=== PATIENT | female | born 2000 | race Hispanic/Latino ===

== ENCOUNTER 2022-10-12 02:04 | Inpatient (IN) | payer OTHER ==
[~2022-10-12] VITALS: Ht 157.5 cm; Wt 88.5 kg
[2022-10-12] MEDS ORDERED: ONDANSETRON HCL INJ 2MG/ML 2ML 2 MG/ML VIAL ONE (02:28)
[2022-10-12] MEDS ORDERED: SODIUM CHLORIDE 0.9% 1000ML 1,000 ML ONE (02:29)
[2022-10-12] MEDS ORDERED: FENTANYL CITRATE/PF 100MCG/2 ML INJ ONE (02:29)
[2022-10-12 02:41] LABS: BASOPHILS % 0.3 % (0.0-1.0); EOSINOPHILS # (AUTO) 0.2 (0.0-0.4); EOSINOPHILS % 1.4 % (0.0-6.0); HEMATOCRIT 43.2 % (34.2-44.1); HEMOGLOBIN 13.4 g/dL (12.0-16.0); LYMPHOCYTES # (AUTO) 5.9 (1.0-3.2); LYMPHOCYTES % 50.6 % (18.0-39.1); MEAN CORPUSCULAR HEMOGLOBIN 29.2 pg (28-32); MEAN CORPUSCULAR VOLUME 94.1 fL (81-99); MONOCYTES # (AUTO) 0.7 (0.2-0.8); MONOCYTES % 5.9 % (4.4-11.3); NEUTROPHILS # (AUTO) 4.9 (2.1-6.9); NEUTROPHILS % 41.6 % (38.7-80.0); PLATELET COUNT 299 x10e3/uL (140-360); RED BLOOD COUNT 4.59 x10e6/uL (3.6-5.1); RED CELL DISTRIBUTION WIDTH 12.5 % (11.7-14.4)
[2022-10-12] MEDS ORDERED: FENTANYL CITRATE/PF 100MCG/2 ML INJ IV ONE (02:45)
[2022-10-12] MEDS ORDERED: ONDANSETRON HCL INJ 2MG/ML 2ML 2 MG/ML VIAL IV STA (02:45)
[2022-10-12 02:57] LABS: ALBUMIN 4.1 g/dL (3.5-5.0); ALBUMIN/GLOBULIN RATIO 1.2 (0.8-2.0); ANION GAP 15.8 mmol/L (8-16); CALCIUM 9.2 mg/dL (8.4-10.2); CREATININE, SERUM 0.77 mg/dL (0.57-1.11)
[2022-10-12 03:07] LABS: POTASSIUM 2.8 mmol/L (3.5-5.1)
[2022-10-12] MEDS ORDERED: POTASSIUM CHLORIDE 20 MEQ TAB CR PO STA (03:07)
[2022-10-12 03:37] LABS: CLARITY,URINE CLOUDY (CLEAR); COLOR,URINE YELLOW (YELLOW); KETONES,URINE NEGATIVE (NEGATIVE); LEUKOCYTE ESTERASE ,URINE NEGATIVE (NEGATIVE); NITRITE,URINE NEGATIVE (NEGATIVE); PROTEIN,URINE DIPSTICK NEGATIVE (NEGATIVE); URINE UROBILINOGEN 1 mg/dL (0.2 - 1)
[2022-10-12 03:44] LABS: BACTERIA,URINE MANY /HPF; WBC,URINE (MAN) 21-50 /HPF (0-5)
[2022-10-12 03:45] LABS: EPITHELIAL CELLS,URINE MANY /LPF
[2022-10-12] MEDS ORDERED: IOPAMIDOL 370 MG/ML 100 ML INFUS..BTL INJ ONE (03:59)
[2022-10-12] MEDS ORDERED: SODIUM CHLORIDE 0.9% 1000ML 1,000 ML IV SCH (04:45)
[2022-10-12] MEDS ORDERED: MELATONIN 5 MG TABLET PO PRN (12:00)
[2022-10-12] MEDS ORDERED: DIPHENHYDRAMINE HCL 25 MG CAP PO PRN (12:00)
[2022-10-12] MEDS ORDERED: BENZONATATE 100 MG CAP PO PRN (12:00)
[2022-10-12] MEDS ORDERED: ACETAMINOPHEN 325 MG TAB PO PRN (12:00)
[2022-10-12] MEDS ORDERED: DEXTROSE 50% SYRINGE 50 ML IV PRN (12:00)
[2022-10-12] MEDS ORDERED: HYDRALAZINE HCL 20 MG/ML VIAL IV PRN (12:00)
[2022-10-12] MEDS ORDERED: POTASSIUM CHLORIDE 20 MEQ TAB CR PO PRN (12:00)
[2022-10-12] MEDS ORDERED: ALBUTEROL/IPRATROPIUM 3 ML NEB NEB PRN (12:00)
[2022-10-12] MEDS ORDERED: DOCUSATE SODIUM 100 MG CAP PO PRN (12:00)
[2022-10-12] MEDS ORDERED: LIDOCAINE 4% PATCH TP PRN (12:00)
[2022-10-12] MEDS ORDERED: SIMETHICONE 80 MG CHEW PO PRN (12:00)
[2022-10-12] MEDS ORDERED: PROPOFOL IV EMULSION 10 MG/ML 20 ML VIAL ONE (12:23)
[2022-10-12 12:24] VITALS: BP 140/90
[2022-10-12] MEDS ORDERED: POTASSIUM CHLORIDE 20 MEQ TAB CR PO ONE (12:30)
[2022-10-12 12:48] VITALS: BP 140/90
[2022-10-12] MEDS ORDERED: LACTATED RINGER'S 1,000 ML INJ ONE (13:00)
[2022-10-12 13:13] VITALS: BP 140/90
[2022-10-12] MEDS: DEXTROSE 5%/LACTATED RINGERS 1,000 ML IV SCH (14:10)
[2022-10-12 16:48] VITALS: BP 149/81
[2022-10-12] MEDS: ENOXAPARIN SOD INJ 40 MG/0.4 ML SYR SC SCH (17:00)
[2022-10-12 20:00] VITALS: BP 166/98
[2022-10-12 20:05] VITALS: BP 166/98
[2022-10-12] MEDS: Morphine 4mg INJECTION 4 MG/ML INJ IV PRN (20:11)
[2022-10-13] VITALS (8 sets, daily range): BP systolic 129–149; BP diastolic 80–91
[2022-10-13] MEDS: DEXTROSE 5%/LACTATED RINGERS 1,000 ML IV SCH ×4 (03:20→15:47)
[2022-10-13 06:10] LABS: BASOPHILS % 0.2 % (0.0-1.0); EOSINOPHILS # (AUTO) 0.1 (0.0-0.4); EOSINOPHILS % 1.5 % (0.0-6.0); LYMPHOCYTES # (AUTO) 2.7 (1.0-3.2); MEAN CORPUSCULAR VOLUME 96.6 fL (81-99); MONOCYTES # (AUTO) 0.6 (0.2-0.8); MONOCYTES % 6.1 % (4.4-11.3); NEUTROPHILS # (AUTO) 5.6 (2.1-6.9); NEUTROPHILS % 61.9 % (38.7-80.0); PLATELET COUNT 237 x10e3/uL (140-360); RED BLOOD COUNT 4.14 x10e6/uL (3.6-5.1); RED CELL DISTRIBUTION WIDTH 12.9 % (11.7-14.4)
[2022-10-13 06:40] LABS: ALBUMIN 3.3 g/dL (3.5-5.0); ALBUMIN/GLOBULIN RATIO 1.2 (0.8-2.0); ANION GAP 11.1 mmol/L (8-16); CALCIUM 8.7 mg/dL (8.4-10.2); CREATININE, SERUM 0.74 mg/dL (0.57-1.11); POTASSIUM 4.1 mmol/L (3.5-5.1)
[2022-10-13] MEDS: PANTOPRAZOLE SOD 40 MG TABEC PO SCH (07:30)
[2022-10-13] MEDS: ONDANSETRON HCL INJ 2MG/ML 2ML 2 MG/ML VIAL IV PRN ×2 (09:00→14:05)
[2022-10-13] MEDS: Morphine 4mg INJECTION 4 MG/ML INJ IV PRN ×3 (09:00→22:40)
[2022-10-13] MEDS: ENOXAPARIN SOD INJ 40 MG/0.4 ML SYR SC SCH (15:47)
[2022-10-14] VITALS (8 sets, daily range): BP systolic 131–152; BP diastolic 79–88
[2022-10-14] MEDS: DEXTROSE 5%/LACTATED RINGERS 1,000 ML IV SCH ×4 (02:06→20:27)
[2022-10-14 06:28] LABS: ALBUMIN 2.8 g/dL (3.5-5.0); ANION GAP 8.6 mmol/L (8-16); CALCIUM 8.7 mg/dL (8.4-10.2); CREATININE, SERUM 0.76 mg/dL (0.57-1.11); POTASSIUM 3.6 mmol/L (3.5-5.1)
[2022-10-14] MEDS ORDERED: BUPIVACAINE HCL 0.5% INJ 30 ML VIAL INJ ONE (07:44)
[2022-10-14 07:52] LABS: BASOPHILS % 0.3 % (0.0-1.0); EOSINOPHILS # (AUTO) 0.3 (0.0-0.4); EOSINOPHILS % 2.7 % (0.0-6.0); HEMOGLOBIN 11.7 g/dL (12.0-16.0); LYMPHOCYTES # (AUTO) 3.7 (1.0-3.2); LYMPHOCYTES % 36.6 % (18.0-39.1); MEAN CORPUSCULAR HEMOGLOBIN 29.2 pg (28-32); MEAN CORPUSCULAR HGB CONC 32.5 g/dL (31-35); MEAN CORPUSCULAR VOLUME 89.8 fL (81-99); MONOCYTES # (AUTO) 0.7 (0.2-0.8); MONOCYTES % 6.6 % (4.4-11.3); NEUTROPHILS # (AUTO) 5.3 (2.1-6.9); NEUTROPHILS % 53.5 % (38.7-80.0); PLATELET COUNT 211 x10e3/uL (140-360); RED BLOOD COUNT 4.01 x10e6/uL (3.6-5.1); RED CELL DISTRIBUTION WIDTH 12.7 % (11.7-14.4)
[2022-10-14] MEDS: PANTOPRAZOLE SOD 40 MG TABEC PO SCH (10:27)
[2022-10-14] MEDS: ONDANSETRON HCL INJ 2MG/ML 2ML 2 MG/ML VIAL IV PRN ×2 (12:14→21:18)
[2022-10-14] MEDS: Morphine 4mg INJECTION 4 MG/ML INJ IV PRN ×2 (12:14→21:17)
[2022-10-14] MEDS ORDERED: GLYCOPYRROLATE INJ 0.2 MG/ML VIAL ONE (13:27)
[2022-10-14] MEDS ORDERED: NEOSTIGMINE 1 MG/ML 10ML VIAL ONE (13:27)
[2022-10-14] MEDS ORDERED: ONDANSETRON HCL INJ 2MG/ML 2ML 2 MG/ML VIAL ONE (13:27)
[2022-10-14] MEDS ORDERED: SEVOFLURANE INHAL SOLN 250 ML PEN BTL ONE (13:27)
[2022-10-14] MEDS ORDERED: PROPOFOL IV EMULSION 10 MG/ML 20 ML VIAL ONE (13:27)
[2022-10-14] MEDS ORDERED: KETOROLAC TROMETHAMINE 30 MG/ML VIAL ONE (13:27)
[2022-10-14] MEDS ORDERED: LIDOCAINE HCL 2% LOCAL INJ 5 ML SDV VIAL INJ ONE (13:27)
[2022-10-14] MEDS ORDERED: ROCURONIUM BROMIDE 10 MG/ML 5ML VIAL IV ONE (13:27)
[2022-10-14] MEDS ORDERED: POVIDONE IODINE 0.05% 0.05 % ML PO ONE (13:27)
[2022-10-14] MEDS ORDERED: METOCLOPRAMIDE HCL 10 MG/2ML VIAL ONE (13:27)
[2022-10-14] MEDS ORDERED: DEXAMETHASONE SOD PHOS INJ 4 MG/ML SDV ONE (13:27)
[2022-10-14] MEDS: ENOXAPARIN SOD INJ 40 MG/0.4 ML SYR SC SCH (16:08)
[2022-10-15 00:15] VITALS: BP 150/90
[2022-10-15] MEDS: DEXTROSE 5%/LACTATED RINGERS 1,000 ML IV SCH (03:14)
[2022-10-15 04:10] VITALS: BP 136/89
[2022-10-15 08:00] VITALS: BP 141/93
[2022-10-15] MEDS: PANTOPRAZOLE SOD 40 MG TABEC PO SCH (08:25)
[2022-10-15 08:43] VITALS: BP 141/93
[2022-10-15] MEDS ORDERED: TRAMADOL HCL 50 MG TAB PO PRN (10:30)
[2022-10-15 12:40] VITALS: BP 133/80
== END 2022-10-15 16:57 | disposition home or self-care (01) | DRG 418 ==
LOC: ER 02:35 → ERHOLD 04:43 → MED/SURG2 12:03
PROVIDERS: ADMIT Internal Medicine; ATTEND Internal Medicine
PROC: 0FT44ZZ Resection of Gallbladder, Percutaneous Endoscopic Approach (ICD-10-PCS; principal; 2022-10-12)
DX: K85.10 Biliary acute pancreatitis without necrosis or infection (principal); K80.00 Calculus of gallbladder with acute cholecystitis without obstruction; E87.8 Other disorders of electrolyte and fluid balance, not elsewhere classified; E87.6 Hypokalemia; E66.01 Morbid (severe) obesity due to excess calories; Z68.35 Body mass index [BMI] 35.0-35.9, adult; Z98.84 Bariatric surgery status; Z20.822 Contact with and (suspected) exposure to COVID-19
CPT/HCPCS: 36415; 74177; 74181; 76705; 80053; 81001; 83690; 84702; 85025; 88304; 99284; J1100; J1650; J1885; J2001; J2270; J2405; J2543; J2710; J2765; J3010; J7030; J7121; Q9967